=== PATIENT | female | born 2000 | race Two or more races ===

== ENCOUNTER 2025-03-01 13:34 | Emergency (ER) | payer BC ==
[~2025-03-01] VITALS: Ht 157.5 cm; Wt 54.0 kg
[2025-03-01 13:53] VITALS: O2SAT 100
[2025-03-01] MEDS ORDERED: BENZ200C52 MT (14:19)
[2025-03-01 14:48] VITALS: BP 130/55; PULSE 89; RESP 16; TEMP 37; O2SAT 100
== END 2025-03-01 14:49 | disposition home or self-care (01) ==
LOC: ER 13:34
DX: R05.1 Acute cough (principal); R07.89 Other chest pain
CPT/HCPCS: 71045; 93005; 99283